=== PATIENT | male | born 1970 | race Caucasian/White ===

== ENCOUNTER 2017-08-15 10:33 | Emergency (ER) | payer SELFPAY ==
[2017-08-15 10:34] VITALS: BMI 25.8
--- NOTE | 2017-08-15 12:12 | C.PDOC ---
History Of Present Illness 47 yr old male presents to the ER from [facility] for abnormal EKG findings. Patient was being seen at [facility] for schedule surgery next week with Dr. Gant, where he had an EKG which was found to abnormal. Patient was brought in for further evaluation. At present time, patient denies chest pain, palpitations, SOB, nausea, vomiting, weakness or numbness. Time Seen by Provider: 08/15/17 11:50 Chief Complaint (Nursing): Medical Clearance History Per: Patient History/Exam Limitations: no limitations Past Medical History Reviewed: Historical Data, Nursing Documentation, Vital Signs Vital Signs: Last Vital Signs Temp 97.7 F 08/15/17 12:30 Pulse 50 L 08/15/17 12:30 Resp 17 08/15/17 12:30 BP 119/78 08/15/17 12:30 Pulse Ox 99 08/15/17 12:30 Surgical History: Appendectomy Family History: States: No Known Family Hx - Social History Hx Alcohol Use: No Hx Substance Use: No - Immunization History Hx Tetanus Toxoid Vaccination: No Hx Influenza Vaccination: No Hx Pneumococcal Vaccination: No Review Of Systems Cardiovascular: Negative for: Chest Pain, Palpitations Respiratory: Negative for: Shortness of Breath Gastrointestinal: Negative for: Nausea, Vomiting Neurological: Negative for: Weakness, Numbness Physical Exam - Physical Exam Appears: Non-toxic, No Acute Distress Skin: Warm, Dry Oral Mucosa: Moist Chest: Symmetrical, No Tenderness Cardiovascular: Rhythm Regular, No Murmur Respiratory: Normal Breath Sounds, No Rales, No Rhonchi, No Stridor, No Wheezing Extremity: Normal ROM, No Swelling Neurological/Psych: Oriented x3, Normal Speech Medical Decision Making Medical Decision Making: pt discussed with Dr Kimble, EKG revewed by him, pt with j -point elevation in inferior and lateral leads, nothing to do. pt is asymptomatic, d/c home. Disposition Counseled Patient/Family Regarding: Diagnosis, Need For Followup - Disposition Referrals: [facility] [Outside] Disposition: HOME/ ROUTINE Disposition Time: 13:04 Condition: GOOD Additional Instructions: Por favor, yajaira un seguimiento en la clnica mdica en los prximos reardon y con cardiologa. Regrese a la sneha de emergencias para cualquier sntoma peor. Instructions: Electrocardiogram Forms: Gen Discharge Inst Rwandan, Archiver's (Rwandan) - Clinical Impression Clinical Impression: Medical assessment, Abnormal EKG - PA / FLEET DRIVER / Resident Statement MD/DO has reviewed & agrees with the documentation as recorded. - Scribe Statement The provider has reviewed the documentation as recorded by the Scribe Marci Jeter All medical record entries made by the Scribe were at my direction and personally dictated by me. I have reviewed the chart and agree that the record accurately reflects my personal performance of the history, physical exam, medical decision making, and the department course for this patient. I have also personally directed, reviewed, and agree with the discharge instructions and disposition.
[2017-08-15 12:31] VITALS: BP 119/78; PULSE 50; RESP 17; TEMP 97.7; O2SAT 99
--- NOTE | 2017-08-17 23:03 | CARD ---
APPROVED REPORT EKG Measurement Heart [id number] <Conclusion> Sinus bradycardia Early repolarization changes Maybe normal finding Borderline EKG
== END 2017-08-15 13:21 | disposition home or self-care (01) ==
LOC: C.ER 10:33
DX: Z00.00 Encounter for general adult medical examination without abnormal findings (principal); R94.31 Abnormal electrocardiogram [ECG] [EKG]

== ENCOUNTER 2017-08-19 05:41 | Day surgery (SDC) | payer SELFPAY ==
[2017-08-15 10:42] VITALS: BMI 22.8
[2017-08-19] MEDS ORDERED: Propofol 10 mg/ml Inj (20 ML) ONE (07:45)
[2017-08-19] MEDS ORDERED: Midazolam 2 MG/2 ML VIAL ONE (07:45)
[2017-08-19] MEDS ORDERED: Iohexol 240 (50 ml) ONE (07:50)
[2017-08-19] MEDS ORDERED: Lactated Ringer's 1,000 ML IV ONE ×3 (08:20→10:10)
[2017-08-19] MEDS ORDERED: HYDROmorphone 0.5 mg/0.5 ml ISec IVP PRN (09:16)
--- NOTE | 2017-08-19 09:34 | PCM.SURG1 ---
Surgeon's Initial Post Op Note - Surgeon's Notes Surgeon: ana camargo Under Cutter: none Type of Anesthesia: General LMA Pre-Operative Diagnosis: R ureteral calculus Operative Findings: same Post-Operative Diagnosis: same Operation Performed: cysto. R ureteroscopy. laser uretero-lithotripsy. stone basketing. stent insertion Specimen/Specimens Removed: urine. stone Estimated Blood Loss: EBL {In ML}: 0 Blood Products Given: N/A Post-Op Condition: Good Date of Surgery/Procedure: 08/19/17 Time of Surgery/Procedure: 09:15
[2017-08-19 10:46] VITALS: RESP 15; O2SAT 100
[2017-08-19 11:00] VITALS: BP 109/70; PULSE 58; TEMP 97.3
--- NOTE | 2017-08-19 13:58 | RAD ---
PROCEDURE: Intraoperative Fluoroscopy. HISTORY: RT. URETER STONE FINDINGS: Fluoroscopic assistance was provided for right ureteral and stent placement. Please refer to the operative report from Dr. HENRY LAKELAND. Total fluoroscopic time (continuous mode) utilized during the procedure: 33.8 seconds.
--- NOTE | 2017-08-19 14:39 | RAD ---
HISTORY: RT. URETER STONE COMPARISON: No prior. FINDINGS: BOWEL: Stool retention. No obstruction. No free air. BONES: Normal. OTHER FINDINGS: A double-J right ureteral stent is present The proximal coil projects over the expected right intra/ extra renal pelvis region. Right upper quadrant stool impedes optimal evaluation for any additional renal calcifications here the than with oblique views. No right ureteral calculi appreciated along the ureteral stent. Distal coil projecting over bladder Approximately 5 mm calcification and/or ossification projects over the central L5 vertebral body on frontal view -may be a bone island IMPRESSION: No right ureteral calculi appreciated Stool retention.
--- NOTE | 2017-08-20 14:23 | OP ---
PROCEDURE DATE: 08/19/2017 UROLOGY OPERATIVE REPORT PREOPERATIVE DIAGNOSIS: Right ureteral calculus. POSTOPERATIVE DIAGNOSIS: Right ureteral calculus. PROCEDURES: 1. Cystoscopy. 2. Right ureteroscopy. 3. Laser ureteral lithotripsy. 4. Right ureteral stone basketing. 5. Insertion of right ureteral stent. OPERATING SURGEON: Elsa Amezcua MD DESCRIPTION OF PROCEDURE: The patient had coal mine inspector film of the abdomen including oblique views. The right ureteral stent was in good position. The wound was in proper position. There were no radiodense stones identified along the course of the ureteral stent overlying the right kidney. The patient was placed in lithotomy position. Genitalia prepped and draped sterilely. Perioperative antibiotics were administered. Anesthesia was administered by the anesthesiologist via laryngeal mask airway. A 22-Bolivian cystoscope sheath was introduced under direct vision. The urethra, prostate and bladder were inspected. FINDINGS: There was no stricture. There was mild prostatic hypertrophy, which was nonocclusive. Prostatic urethra was 2.5 to 3 cm in length. There was no bladder tumor. There was no bladder stone. The right ureteral orifice was identified. The right ureteral stent was identified. There was moderate edema of the right ureteral orifice with inflammatory mucosal changes. The right ureteral stent was grasped with rigid grasping forceps and brought to the distal end of the cystoscope sheath. A 0.035-inch guidewire was inserted into the right ureteral stent, passed up to the level of the kidney. A 7-Bolivian mini rigid ureteroscope was introduced through the cystoscope sheath. A second guidewire was passed through the ureteroscope into the ureteral orifice up to the level of kidney. The ureteroscope was advanced in atraumatic fashion through the ureteral orifice. The stone was identified in the distal ureter, approximately 2 to 3 cm above the ureteral orifice. Laser ureteral lithotripsy was performed using the Bolivian 65 micron fiber and the holmium laser. The stone was broken using the . Multiple stone fragments were removed using the flat wire basket. The scope was reintroduced. There were no residual fragments. The ureteroscope was introduced up to the level of the proximal sacrum. The ureteroscope was removed in atraumatic fashion. The mucosa was intact. A 6-Bolivian multi-length stent was inserted over the remaining guidewire. Proper stent position was confirmed with fluoroscopy and endoscopy. The distal suture was left to exit per urethra and secured to the penis. The bladder had been drained. Cystoscope sheath was removed. Rectal examination performed. Prostate was supple and smooth, approximately 25 gm in size without fixation, induration, or nodularity. The patient was returned to supine position. The patient tolerated the procedure without complication. Elsa Amezcua MD
== END 2017-08-19 10:52 | disposition home or self-care (01) ==
LOC: C.SDS 05:41
PROVIDERS: ATTEND Urology
DX: N20.1 Calculus of ureter (principal)
CPT/HCPCS: 52356; 74019; 82365; 87086; 88300; C1769; C2617; J7120